=== PATIENT | female | born 1990 | race African-American/Black ===

== ENCOUNTER 2016-06-20 14:15 | Emergency (ER) | payer OTHER ==
--- NOTE | 2016-06-20 18:25 | EDDOCDS ---
Physician Documentation [facility] Name: Krystal Pugh Age: 25 yrs Sex: Female : 1990 Arrival Date: 06/20/2016 Time: 14:15 Bed TR8 Private MD: [facility] [place] Disposition: 06/20/16 18:13 Discharged to Home/Self Care. Impression: Urticaria. - Condition is Stable. - Discharge Instructions: Hives. - Prescriptions for Pepcid 20 mg Oral Tablet - take 1 tablet by ORAL route every 12 hours for 5 days; 10 tablet. Prednisone 20 mg Oral Tablet - take 3 tablet by ORAL route once daily for 5 days; 15 tablet. diphenhydramine HCl 50 mg Oral Capsule - take 1 capsule by ORAL route every 6 hours As needed; 30 capsule. - Medication Reconciliation, Local Pharmacy Hours form. - Follow up: [facility] [place]; When: 1 - 2 days; Reason: Recheck today's complaints, Continuance of care. - Problem is new. - Symptoms have improved. - Notes: USE MEDICATIONS INSTRUCTED, FOLLOW UP WITH YOUR DOCTOR IN 1-2 DAYS, RETURN TO THE ER IF THE SYMPTOMS WORSEN OR BECOME CONCERNING Historical: - Allergies: unknown antibiotic; - Home Meds: 1. Gabapentin Unknown Oral 2. tramadol 50 mg Oral tab as needed - PMHx: Sciatica; - PSHx: none; - Social history: Smoking status: Patient states was never smoker of tobacco. No barriers to communication noted, The patient speaks fluent Zimbabwean, Speaks appropriately for age. - Family history: Not pertinent. - : The pt / caregiver states he / she is not on anticoagulants. Home medication list is obtained from the patient. - Exposure Risk Screening:: None identified. 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 2 in. (157.48 cm) (R); Pain 2/10; 15:58 BP 121 / 75; Pulse 74; Resp 16; Temp 98.3(TE); Pulse Ox 99% on R/A; Pain 0/10; ar3 18:21 BP 117 / 74; Pulse 75; Resp 18; Temp 98; Pulse Ox 99% ; Pain 0/10; ms18 14:19 Body Mass Index 25.24 (62.60 kg, 157.48 cm) gr2 MDM: 18:21 [facility] Payment Agreement was scanned into [employer] and attached to record. lola 18:22 Financial registration complete. gjb Signatures: Carlo Santana, ROYCE-C RPA-Cck7 Marley Buenrostro RN RN ead Smith, Mallory, RN RN ms18 Jayda Muller The chart was reviewed and I authenticate all verbal orders and agree with the evaluation and treatment provided.Attachments: 18:21 [facility] Payment Agreement josseline SETH
--- NOTE | 2016-06-20 18:25 | EDDOCDS ---
Nurse's Notes [facility] Name: Krystal Pugh Age: 25 yrs Sex: Female : 1990 Arrival Date: 06/20/2016 Time: 14:15 Bed TR8 Private MD: Tacho PLUMMER Diagnosis: Urticaria Presentation: 06/20 14:28 Presenting complaint: Patient states: Pt reports rash to face, onset . Denies ead knew medications prior to onset of rash. Pt seen by primary care last week and given prescriptions for Zyrtec, Benadryl, and lotion. Pt states no improvement. Onset: The symptoms/episode began/occurred gradually, 4 day(s) ago. The patient has a history of a previous allergic reaction. The patient has a history of a previous allergic reaction. rash to previous antibiotics. Anaphylaxis evaluation, the patient reports or I have noted the following symptoms which indicate a significant risk of anaphylaxis: no signs or symptoms of anaphylaxis were noted. Adult Sepsis Screening: The patient does not have new or worsening altered mentation. Patient's respiratory rate is less than 22. Systolic blood pressure is greater than 100. Patient has a qSOFA score of 0- Negative Sepsis Screen. Suicide/Homicide risk assessment- the patient denies having any suicidal and/or homicidal ideations and does not present with any other emotional, behavioral or mental health complaints. 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 Transition of care: patient was not received from another setting of care. 14:28 Acuity: SERENA Level 4 ead 14:28 Method Of Arrival: Walkin/Carried/Asstd ead Triage Assessment: 14:32 General: Appears in no apparent distress, comfortable, well nourished, well groomed, ead Behavior is appropriate for age, cooperative, pleasant. Pain: Denies pain. HIV screening NA for this visit Offered previously. Neurological: No deficits noted. Respiratory: Airway is patent Respiratory effort is even, unlabored, Reports no respiratory complaints. Derm: Skin is dry, Skin is normal, pt reports rash to face and chest. small red bumps to neck and chest. 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 Gabapentin Unknown Oral 2. tramadol 50 mg Oral tab as needed - PMHx: Sciatica; - PSHx: none; - Social history: Smoking status: Patient states was never smoker of tobacco. No barriers to communication noted, The patient speaks fluent Mohawk, Speaks appropriately for age. - Family history: Not pertinent. - : The pt / caregiver states he / she is not on anticoagulants. Home medication list is obtained from the patient. - Exposure Risk Screening:: None identified. Screenin:21 Screening information is obtained from the patient. Fall risk: No risks identified. ms18 Assistance ADL's: requires no assistance with activities of daily living. Abuse/DV Screen: The patient / caregiver reports he/she is: not in a situation that causes fear, pain or injury. Nutritional screening: No deficits noted. Advance Directives: There is no living will. home support is adequate. Assessment: 17:29 General: Appears in no apparent distress, comfortable, Behavior is appropriate for age, ead cooperative. Pain: Denies pain. Respiratory: Airway is patent Respiratory effort is even, unlabored. Respiratory: Denies cough, shortness of breath. Derm: Skin is dry, Skin is normal, pt reports red bumpy rash to neck and chest. 18:21 General: Appears in no apparent distress, comfortable, well nourished, well groomed, ms18 Behavior is appropriate for age, cooperative, pleasant. Pain: Denies pain. Neurological: Level of Consciousness is awake, alert, obeys commands, Oriented to person, place, time. Cardiovascular: No deficits noted. Respiratory: Airway is patent Respiratory effort is even, unlabored, Breath sounds are clear bilaterally. Derm: Skin is normal. Vital Signs: 14:19 BP 115 / 71; Pulse 97; Resp 18 S; Temp 98.4(O); Pulse Ox 100% on R/A; Weight 62.6 kg gr2 (R); Height 5 ft. 2 in. (157.48 cm) (R); Pain 2/10; 15:58 BP 121 / 75; Pulse 74; Resp 16; Temp 98.3(TE); Pulse Ox 99% on R/A; Pain 0/10; ar3 18:21 BP 117 / 74; Pulse 75; Resp 18; Temp 98; Pulse Ox 99% ; Pain 0/10; ms18 14:19 Body Mass Index 25.24 (62.60 kg, 157.48 cm) gr2 Vitals: 14:19 Log In Time: June 20, 2016 at 14:19. gr2 ED Course: 14:18 Patient visited by Min Espinoza. gr2 14:18 [facility] is Private Physician. gr2 14:18 Patient moved to Waiting gr2 14:21 Patient visited by Min Espinoza. gr2 14:21 Patient moved to Pre RCE gr2 14:31 Triage Initiated ead 16:00 Patient visited by Silvia Cavazos PCA. ar3 17:25 Patient moved to Triage 2 ms18 17:29 Patient visited by Marley Buenrostro,SHIELA. ead 18:02 Carlo Santana RPA-C is PHCP. ck7 18:02 Lacy Huber MD is Attending Physician. ck7 18:02 Patient visited by Carlo Santana RPA-C. ck7 18:13 [facility] is Referral Physician. ck7 18:20 Patient visited by Indu Morrison RN. ms18 18:20 Patient moved to TR8 bnb 18:21 [facility] Payment Agreement was scanned into [employer] and attached to record. gjb 18:21 The patient / caregiver is instructed regarding the plan of care and ED course. Patient ms18 has correct armband on for positive identification. Property sent home with patient. :Personal belongings accompany Pt. 18:21 No IV's were initiated during this patient's visit. No procedures done that require ms18 assistance. Order Results: There are currently no results for this order. Outcome: 18:13 Discharge ordered by Provider. ck7 18:21 Discharge Assessment: Patient awake, alert and oriented x 3. No cognitive and/or ms18 functional deficits noted. Patient verbalized understanding of disposition instructions. patient administered narcotics - no. The following High Risk Discharge criteria are identified: None. Condition: good Condition: stable. Discharge instructions given to patient, Instructed on discharge instructions, follow up and referral plans. Demonstrated understanding of instructions, medications, Pt was receptive of discharge instructions/ teaching. Prescriptions given X 3. No special radiology studies were completed. 18:24 Patient left the ED. ms18 Signatures: Silvia Cavazos PCA DOCKET SPECIALIST ar3 KwCarlo rodriguez RPA-C RPA-Min Taylor gr2 Marley Buenrostro,RN RN gemmad Indu Morrison RN RN ms18 Jayda Muller Brittney, RACHEL DOCKET SPECIALIST bnb MTDD
--- NOTE | 2016-06-22 19:25 | EDDOCDS ---
Physician Documentation [facility] Name: Krystal Pugh Age: 25 yrs Sex: Female : 1990 Arrival Date: 06/20/2016 Time: 14:15 Bed TR8 Private MD: [facility] [place] Disposition: 06/20/16 18:13 Discharged to Home/Self Care. Impression: Urticaria. - Condition is Stable. - Discharge Instructions: Hives. - Prescriptions for Pepcid 20 mg Oral Tablet - take 1 tablet by ORAL route every 12 hours for 5 days; 10 tablet. Prednisone 20 mg Oral Tablet - take 3 tablet by ORAL route once daily for 5 days; 15 tablet. diphenhydramine HCl 50 mg Oral Capsule - take 1 capsule by ORAL route every 6 hours As needed; 30 capsule. - Medication Reconciliation, Local Pharmacy Hours form. - Follow up: [facility] [place]; When: 1 - 2 days; Reason: Recheck today's complaints, Continuance of care. - Problem is new. - Symptoms have improved. - Notes: USE MEDICATIONS INSTRUCTED, FOLLOW UP WITH YOUR DOCTOR IN 1-2 DAYS, RETURN TO THE ER IF THE SYMPTOMS WORSEN OR BECOME CONCERNING Historical: - Allergies: unknown antibiotic; - Home Meds: 1. Gabapentin Unknown Oral 2. tramadol 50 mg Oral tab as needed - PMHx: Sciatica; - PSHx: none; - Social history: Smoking status: Patient states was never smoker of tobacco. No barriers to communication noted, The patient speaks fluent Burmese, Speaks appropriately for age. - Family history: Not pertinent. - : The pt / caregiver states he / she is not on anticoagulants. Home medication list is obtained from the patient. - Exposure Risk Screening:: None identified. 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 2 in. (157.48 cm) (R); Pain 2/10; 15:58 BP 121 / 75; Pulse 74; Resp 16; Temp 98.3(TE); Pulse Ox 99% on R/A; Pain 0/10; ar3 18:21 BP 117 / 74; Pulse 75; Resp 18; Temp 98; Pulse Ox 99% ; Pain 0/10; ms18 14:19 Body Mass Index 25.24 (62.60 kg, 157.48 cm) gr2 MDM: 18:21 [facility] Payment Agreement was scanned into [employer] and attached to record. [facility] 18: Financial registration complete. b 06/21 10:22 T-Sheet-- Draft Copy was scanned into [employer] and attached to record. gb Signatures: Kymberly Osborne, Reg Reg gb Carlo Santana, RPA-C RPA-Cck7 Marley Buenrostro,RN RN Indu Sinha RN RN ms18 Jayda Muller The chart was reviewed and I authenticate all verbal orders and agree with the evaluation and treatment provided.Attachments: 06/20 18:21 [facility] Payment Agreement [facility] 06/21 10:22 T-Sheet-- Draft Copy gb Chart Complete MTDD
--- NOTE | 2016-06-22 19:25 | EDDOCDS ---
Physician Documentation [facility] Name: Krystal Pugh Age: 25 yrs Sex: Female : 1990 Arrival Date: 06/20/2016 Time: 14:15 Bed TR8 Private MD: [facility] [place] Disposition: 06/20/16 18:13 Discharged to Home/Self Care. Impression: Urticaria. - Condition is Stable. - Discharge Instructions: Hives. - Prescriptions for Pepcid 20 mg Oral Tablet - take 1 tablet by ORAL route every 12 hours for 5 days; 10 tablet. Prednisone 20 mg Oral Tablet - take 3 tablet by ORAL route once daily for 5 days; 15 tablet. diphenhydramine HCl 50 mg Oral Capsule - take 1 capsule by ORAL route every 6 hours As needed; 30 capsule. - Medication Reconciliation, Local Pharmacy Hours form. - Follow up: [facility] [place]; When: 1 - 2 days; Reason: Recheck today's complaints, Continuance of care. - Problem is new. - Symptoms have improved. - Notes: USE MEDICATIONS INSTRUCTED, FOLLOW UP WITH YOUR DOCTOR IN 1-2 DAYS, RETURN TO THE ER IF THE SYMPTOMS WORSEN OR BECOME CONCERNING Historical: - Allergies: unknown antibiotic; - Home Meds: 1. Gabapentin Unknown Oral 2. tramadol 50 mg Oral tab as needed - PMHx: Sciatica; - PSHx: none; - Social history: Smoking status: Patient states was never smoker of tobacco. No barriers to communication noted, The patient speaks fluent Mauritian, Speaks appropriately for age. - Family history: Not pertinent. - : The pt / caregiver states he / she is not on anticoagulants. Home medication list is obtained from the patient. - Exposure Risk Screening:: None identified. 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 2 in. (157.48 cm) (R); Pain 2/10; 15:58 BP 121 / 75; Pulse 74; Resp 16; Temp 98.3(TE); Pulse Ox 99% on R/A; Pain 0/10; ar3 18:21 BP 117 / 74; Pulse 75; Resp 18; Temp 98; Pulse Ox 99% ; Pain 0/10; ms18 14:19 Body Mass Index 25.24 (62.60 kg, 157.48 cm) gr2 MDM: 18:21 [facility] Payment Agreement was scanned into [employer] and attached to record. [facility] 18: Financial registration complete. b 06/21 10:22 T-Sheet-- Draft Copy was scanned into [employer] and attached to record. gb Signatures: Kymberly Osborne, Reg Reg gb Carlo Santana, RPA-C RPA-Cck7 Marley Buenrostro,RN RN Indu Sinha RN RN ms18 Jayda Muller The chart was reviewed and I authenticate all verbal orders and agree with the evaluation and treatment provided.Attachments: 06/20 18:21 [facility] Payment Agreement [facility] 06/21 10:22 T-Sheet-- Draft Copy gb Chart Complete MTDD
--- NOTE | 2016-06-22 19:25 | EDDOCDS ---
Nurse's Notes [facility] Name: Krystal Pugh Age: 25 yrs Sex: Female : 1990 Arrival Date: 06/20/2016 Time: 14:15 Bed TR8 Private MD: Tacho PLUMMER Diagnosis: Urticaria Presentation: 06/20 14:28 Presenting complaint: Patient states: Pt reports rash to face, onset . Denies ead knew medications prior to onset of rash. Pt seen by primary care last week and given prescriptions for Zyrtec, Benadryl, and lotion. Pt states no improvement. Onset: The symptoms/episode began/occurred gradually, 4 day(s) ago. The patient has a history of a previous allergic reaction. The patient has a history of a previous allergic reaction. rash to previous antibiotics. Anaphylaxis evaluation, the patient reports or I have noted the following symptoms which indicate a significant risk of anaphylaxis: no signs or symptoms of anaphylaxis were noted. Adult Sepsis Screening: The patient does not have new or worsening altered mentation. Patient's respiratory rate is less than 22. Systolic blood pressure is greater than 100. Patient has a qSOFA score of 0- Negative Sepsis Screen. Suicide/Homicide risk assessment- the patient denies having any suicidal and/or homicidal ideations and does not present with any other emotional, behavioral or mental health complaints. 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 Transition of care: patient was not received from another setting of care. 14:28 Acuity: SERENA Level 4 ead 14:28 Method Of Arrival: Walkin/Carried/Asstd ead Triage Assessment: 14:32 General: Appears in no apparent distress, comfortable, well nourished, well groomed, ead Behavior is appropriate for age, cooperative, pleasant. Pain: Denies pain. HIV screening NA for this visit Offered previously. Neurological: No deficits noted. Respiratory: Airway is patent Respiratory effort is even, unlabored, Reports no respiratory complaints. Derm: Skin is dry, Skin is normal, pt reports rash to face and chest. small red bumps to neck and chest. 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 Gabapentin Unknown Oral 2. tramadol 50 mg Oral tab as needed - PMHx: Sciatica; - PSHx: none; - Social history: Smoking status: Patient states was never smoker of tobacco. No barriers to communication noted, The patient speaks fluent Vietnamese, Speaks appropriately for age. - Family history: Not pertinent. - : The pt / caregiver states he / she is not on anticoagulants. Home medication list is obtained from the patient. - Exposure Risk Screening:: None identified. Screenin:21 Screening information is obtained from the patient. Fall risk: No risks identified. ms18 Assistance ADL's: requires no assistance with activities of daily living. Abuse/DV Screen: The patient / caregiver reports he/she is: not in a situation that causes fear, pain or injury. Nutritional screening: No deficits noted. Advance Directives: There is no living will. home support is adequate. Assessment: 17:29 General: Appears in no apparent distress, comfortable, Behavior is appropriate for age, ead cooperative. Pain: Denies pain. Respiratory: Airway is patent Respiratory effort is even, unlabored. Respiratory: Denies cough, shortness of breath. Derm: Skin is dry, Skin is normal, pt reports red bumpy rash to neck and chest. 18:21 General: Appears in no apparent distress, comfortable, well nourished, well groomed, ms18 Behavior is appropriate for age, cooperative, pleasant. Pain: Denies pain. Neurological: Level of Consciousness is awake, alert, obeys commands, Oriented to person, place, time. Cardiovascular: No deficits noted. Respiratory: Airway is patent Respiratory effort is even, unlabored, Breath sounds are clear bilaterally. Derm: Skin is normal. Vital Signs: 14:19 BP 115 / 71; Pulse 97; Resp 18 S; Temp 98.4(O); Pulse Ox 100% on R/A; Weight 62.6 kg gr2 (R); Height 5 ft. 2 in. (157.48 cm) (R); Pain 2/10; 15:58 BP 121 / 75; Pulse 74; Resp 16; Temp 98.3(TE); Pulse Ox 99% on R/A; Pain 0/10; ar3 18:21 BP 117 / 74; Pulse 75; Resp 18; Temp 98; Pulse Ox 99% ; Pain 0/10; ms18 14:19 Body Mass Index 25.24 (62.60 kg, 157.48 cm) gr2 Vitals: 14:19 Log In Time: June 20, 2016 at 14:19. gr2 ED Course: 14:18 Patient visited by Min Espinoza. gr2 14:18 [facility] is Private Physician. gr2 14:18 Patient moved to Waiting gr2 14:21 Patient visited by Min Espinoza. gr2 14:21 Patient moved to Pre RCE gr2 14:31 Triage Initiated ead 16:00 Patient visited by Silvia Cavazos PCA. ar3 17:25 Patient moved to Triage 2 ms18 17:29 Patient visited by Marley Buenrostro,RN. ead 18:02 Carlo Santana RPA-C is PHCP. ck7 18:02 Lacy Huber MD is Attending Physician. ck7 18:02 Patient visited by Carlo Santana RPA-C. ck7 18:13 [facility] is Referral Physician. ck7 18:20 Patient visited by Indu Morrison RN. ms18 18:20 Patient moved to TR8 bnb 18:21 [facility] Payment Agreement was scanned into [employer] and attached to record. gjb 18:21 The patient / caregiver is instructed regarding the plan of care and ED course. Patient ms18 has correct armband on for positive identification. Property sent home with patient. :Personal belongings accompany Pt. 18:21 No IV's were initiated during this patient's visit. No procedures done that require ms18 assistance. 06/21 10:22 T-Sheet-- Draft Copy was scanned into [employer] and attached to record. gb Order Results: There are currently no results for this order. Outcome: 06/20 18:13 Discharge ordered by Provider. ck7 18:21 Discharge Assessment: Patient awake, alert and oriented x 3. No cognitive and/or ms18 functional deficits noted. Patient verbalized understanding of disposition instructions. patient administered narcotics - no. The following High Risk Discharge criteria are identified: None. Condition: good Condition: stable. Discharge instructions given to patient, Instructed on discharge instructions, follow up and referral plans. Demonstrated understanding of instructions, medications, Pt was receptive of discharge instructions/ teaching. Prescriptions given X 3. No special radiology studies were completed. 18:24 Patient left the ED. ms18 Signatures: Kmyberly Osborne Reg Reg gb Macy, Silvia, GLOBAL ACCOUNT DIRECTOR GLOBAL ACCOUNT DIRECTOR ar3 Esther, Carlo, RPA-C RPA-Cck7 Min Espinoza gr2 Marley Buenrostro,RN RN teddy Morrison,SHIELA Griggs RN ms18 Jayda Muller Brittney, GLOBAL ACCOUNT DIRECTOR GLOBAL ACCOUNT DIRECTOR bnb Chart Complete MTDD
== END 2016-06-20 18:24 | disposition home or self-care (01) ==
LOC: M ED 14:15
DX: R21 Rash and other nonspecific skin eruption (principal); M54.30 Sciatica, unspecified side; Z79.891 Long term (current) use of opiate analgesic; Z79.899 Other long term (current) drug therapy; Z88.1 Allergy status to other antibiotic agents